=== PATIENT | male | born 1970 | race Two or more races ===

== ENCOUNTER 2025-03-11 12:17 | Emergency (ER) | payer MEDICAID, SELFPAY ==
--- NOTE | 2025-03-11 12:26 | EDNOTE_ITS ---
ED General RME/HPI General Chief complaint: Psychiatric Symptoms Stated complaint: SUICIDAL IDEATIONS Time Seen by Provider: 03/11/25 12:30 Arrival date/time: 03/11/25 12:17 Limitations: no limitations RME / HPI RME / HPI narrative: DR. HAMM MAIN ED EVALUATION: 54 year old male with past medical history significant for depression presents to the Emergency Department [facility] with complaints of depression and suicidal ideation onset 3 days. He mentions he used to live with his cousin, but they moved to [place]. Patient states he just does not want to live anymore, but no plan to kill himself. No homicidal ideation, hallucinations, or other symptoms at this time. Patient denies any tobacco, alcohol, or substance use. Review of Systems Review of Systems Systems Reviewed: All systems reviewed, normal except as documented Past Medical History Past Medical History PSYCHO/SOCIAL: Positive Depression Social History SMOKING STATUS: Never smoker SUBSTANCE USE: does not use ALCOHOL: Never ED Exam General Limitations: Present no limitations General appearance: Present alert and in no apparent distress Head Head exam: Present atraumatic, normocephalic and normal inspection Eye Eye exam: Present normal appearance, PERRL and EOMI ENT ENT exam: Present normal exam, normal oropharynx and mucous membranes moist Neck Neck exam: Present normal inspection, full ROM and trachea midline Chest Chest inspection: Present normal inspection and symmetric chest wall rise Respiratory Respiratory exam: Present normal lung sounds bilaterally Cardiovascular Cardiovascular exam: Present regular rate, normal rhythm and normal heart sounds Abdominal Exam Abdominal exam: Present soft and normal bowel sounds Extremities Exam Extremities exam: Present normal inspection and full ROM Back Exam Back exam: Present normal inspection and full ROM Neurological Exam Neurological exam: Present alert, oriented X3 and CN II-XII intact Psychiatric Psychiatric exam: Present depressed and suicidal ideation Skin Skin exam: Present warm, dry, intact and normal color Course Quality Measures none Orders Category Date Time Status Consult [employer] Counter Person NOW Care 03/11/25 13:56 Active Acetaminophen Stat Lab 03/11/25 13:23 Completed Alcohol, Blood Medical Stat Lab 03/11/25 13:23 Completed Basic Metabolic Panel Stat Lab 03/11/25 13:23 Completed CBC Stat Lab 03/11/25 13:23 Completed Drug Screen,Urine Stat Lab 03/11/25 12:48 Completed Salicylate Stat Lab 03/11/25 13:23 Completed Urinalysis, C/S if Indicated Stat Lab 03/11/25 12:48 Completed Vital Signs Vital signs: Vital Signs Temperature 97.8 F 03/11/25 12:44 Pulse Rate 61 03/11/25 12:44 Respiratory Rate 18 03/11/25 12:44 Blood Pressure 198/108 H 03/11/25 12:44 Pulse Oximetry (%) 100 03/11/25 12:44 Oxygen Delivery Method Room Air 03/11/25 12:44 Discharge Plan Plan Patient Disposition: HOME (Self Care) Patient condition on transfer: Stable Prescriptions/Referrals Referrals: No Primary/Family,Physician [Primary Care Provider] - In 1 week Problem List Clinical Impression: Depression Patient/Caregiver Discharge Instructions Education Materials: ED Depression Additional Instructions: Please follow-up with your primary care physician within 2-3 days. Return to the Emergency Department as needed. Dusty un seguimiento con argueta m?dico de cabecera dentro de 2-3 martinez. Regrese al Departamento de Emergencias seg?n sea necesario. Print Language: Macedonian Stand Alone Forms: Geovanna Award Info., Patient Portal Info Letter MDM Narrative MDM hospital course: IMelinda am scribing for and in the presence of Dr. Hamm. 1357: Patient is medically cleared for psychiatric evaluation. 1645: Mental health cleared the patient. Safety plan in place. Patient going to be discharged. Clinical Information Provided by patient and EMS Medical Records Reviewed EMS Meds/Rx Considered, not Ordered None Labs/Rad/Tests considered, not Ordered None Chronic Illness/Social Conditions Add or document further as needed: depression EKG EKG not done Lab Interpretation Labs: interpreted by ma Lab(s) interpretation(s): Unremarkable Imaging Imaging interpretation: none Medication Administration(s) none Diagnosis Differential diagnosis: depression, anxiety, suicidal ideation Most likely dx, and/or detailed dx discussion: Depression Dispositon Disposition: Discharge Home
[2025-03-11 12:44] VITALS: BP 198/108; BP 209/113; PULSE 61; RESP 18; TEMP 36.6; O2SAT 100
[2025-03-11 12:51] LABS: Collection Type, Urine Clean Catch; Squamous Epithelial Cell,Urine 0 /hpf (0-5)
[2025-03-11 12:56] VITALS: PULSE 80; RESP 18; O2SAT 98
[2025-03-11 12:57] LABS: Bilirubin,Urine Negative (Negative); Blood,Urine Negative (Negative); Clarity,Urine Clear (Clear/Hazy); Color,Urine Colorless (Lt Yel-Yel); Culture Indicated,Urine Not Indicated; Glucose, Urine Negative (Negative); Ketones,Urine Negative (Negative); Leukocyte Esterase,Urine Negative (Negative); Nitrite,Urine Negative (Negative); PH,Urine 6.5 (5.0-7.0); Protein,Urine Negative (Neg - Trace); RBC,Urine 1 /hpf (0-3); Urobilinogen,Urine Negative mg/dL (0.0-1.0); WBC,Urine < 1 /hpf (0-5)
[2025-03-11 13:02] LABS: Amphetamine/Methamp Scrn,U Negative (Negative); Barbiturate Screen,Urine Negative (Negative); Benzodiazepines Screen,Urine Negative (Negative); Benzoylecgonine Screen, Ur Negative (Negative); Fentanyl Screen,Urine Negative (Negative); Opiate Screen,Urine Negative (Negative); THC Screen,Urine Negative (Negative)
[2025-03-11 13:03] VITALS: BMI 22.4
[2025-03-11 13:37] LABS: Basophils % (Auto) 1 % (0-2.5); Eosinophils # (Auto) 0.1 Thou/mm3 (0.0-0.5); Eosinophils % (Auto) 2 % (0-10); Hematocrit 43.5 % (41.0-53.0); Hemoglobin 15.1 g/dL (13.5-16.0); Immature Granulocytes % (Auto) 0 % (0-0); Immature Granulocytes Auto 0.01 Thou/mm3 (0.00-0.00); Lymphocytes # (Auto) 1.6 Thou/mm3 (1.0-4.8); Lymphocytes % (Auto) 32 % (10-50); Mean Corpuscular HGB Conc 34.7 g/dl (31.0-37.0); Mean Corpuscular Hemoglobin 28.8 pg (25.0-35.0); Mean Corpuscular Volume 83 fL (80-100); Monocytes # (Auto) 0.5 Thou/mm3 (0.0-0.8); Monocytes % (Auto) 9 % (0-12); Neutrophils # (Auto) 2.8 Thou/mm3 (1.8-7.7); Neutrophils % (Auto) 56 % (37-80); Nucleated Red Blood Cell % 0 /100 WBC (0); Platelet Count 204 Thou/mm3 (140-440); RDW Standard Deviation 36.4 fL (35.1-43.9); Red Blood Count 5.24 Miln/mm3 (4.50-5.90)
[2025-03-11 14:07] LABS: Acetaminophen < 2.0 mcg/mL (10.0-20.0); Alcohol, Blood Medical < 3.0 mg/dL (0-10.0); Anion Gap 8 (7-16); BUN/Creatinine Ratio 11 Ratio (12-20); Blood Urea Nitrogen 11 mg/dL (9-23); Calcium 9.5 mg/dL (8.3-10.6); Carbon Dioxide 26.7 mMol/L (20.0-31.0); Chloride 106 mMol/L (98-107); Estimated Creatinine Clearance 98.1 mL/min (>60); Glucose 101 mg/dL (74-106); Osmolality,Calculated 280 (275-295); Potassium 4.6 mMol/L (3.4-5.1); Salicylate < 3.0 mg/dL; Sodium 141 mMol/L (136-145); eGFR > 60 See Note
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
[2025-03-11 17:05] VITALS: BP 151/97; PULSE 54; RESP 17; TEMP 36.7; O2SAT 98
== END 2025-03-11 17:24 | disposition home or self-care (01) ==
PROVIDERS: Emergency Provider Family Medicine
DX: F32.A Depression, unspecified (principal); R45.851 Suicidal ideations
CPT/HCPCS: 36415; 80048; 80307; 80320; 80329; 81001; 85025; 96127; 99284; G0480